=== PATIENT | male | born 1980 | race Hispanic/Latino ===

== ENCOUNTER 2019-10-25 19:11 | Emergency (ER) | payer SELFPAY ==
[~2019-10-25] VITALS: Ht 190.5 cm; Wt 106.6 kg
[2019-10-25] MEDS ORDERED: TETANUS/DIPHTHERIA TOX ADULT 0.5 ML SYR IM ONE (19:45)
--- NOTE | 2019-10-25 20:33 | Diagnostic Imaging Report ---
FINGER LEFT - 3 views HISTORY: Laceration. COMPARISON: None available. FINDINGS: Bones: No acute displaced fracture. Osseous alignment is within normal limits. Joints: The joint spaces are well-maintained. Soft tissues: No radiopaque foreign body. IMPRESSION: No radiopaque foreign body. Signed by: Dr. Tyler Hall M.D. on 10/25/2019 8:30 PM
== END 2019-10-25 22:33 | disposition home or self-care (01) ==
LOC: ER 19:11
DX: S61.215A Laceration without foreign body of left ring finger without damage to nail, initial encounter (principal); W25.XXXA Contact with sharp glass, initial encounter; Y92.008 Other place in unspecified non-institutional (private) residence as the place of occurrence of the external cause
CPT/HCPCS: 99283

== ENCOUNTER → 2020-06-03 | Outpatient (CLI) | payer BC ==
--- NOTE | 2020-06-03 14:06 | Diagnostic Imaging Report ---
TECHNIQUE: Magnetic resonance imaging of the LEFT KNEE was performed WITHOUT injected contrast. HISTORY: Knee pain, evaluate for meniscal tear. COMPARISON: None available. FINDINGS: LIGAMENTS AND TENDONS: ACL: Intact PCL: Intact Collateral ligaments: Intact Iliotibial band: Unremarkable Popliteal tendon: Intact Extensor mechanism: Intact JOINT: Menisci: Medial: Intact Lateral: Intact Articular Cartilage: Medial Compartment: No focal defect. Lateral Compartment: No focal defect. Patellofemoral Compartment: No focal defect. Joint Fluid: The amount of fluid within the joint is within physiologic limits. BONE: Contusion with small nondisplaced fracture of the anterior tibial plateau coronal image 13. SOFT TISSUES: Soft tissue edema and contusion along the lateral joint line. IMPRESSION: Lateral tibial plateau contusion/small nondisplaced fracture with overlying edema/soft tissue contusion. Intact menisci and ligaments. Signed by: Dr. Perez Mcneil M.D. on 06/03/2020 2:03 PM
== END ==
LOC: MRI 13:02
PROVIDERS: ATTEND Specialist
DX: S83.282A Other tear of lateral meniscus, current injury, left knee, initial encounter (principal)